=== PATIENT | female | born 1950 | race Hispanic/Latino ===

== ENCOUNTER 2024-04-04 09:49 | Emergency (ER) | payer OTHER ==
[~2024-04-04] VITALS: Ht 165.1 cm; Wt 64.0 kg
[2024-04-04] MEDS ORDERED: ondansetron HCL 4 MG/2 ML VIAL IV ONE (10:15)
[2024-04-04] MEDS ORDERED: SODIUM CHLORIDE 0.9% 1,000 ML IV ONE (10:15)
[2024-04-04] MEDS ORDERED: LIDOCAINE & ANTACID 35 ML BTL PO ONE (10:15)
[2024-04-04] MEDS ORDERED: PANTOPRAZOLE SODIUM 40 MG/10 ML VIAL IV ONE (10:15)
[2024-04-04 10:51] LABS: BASOPHILS 0.8 % (0-2); EOSINOPHILS 2.4 % (0-6); HEMATOCRIT 36.3 % (35.0-50.0); HEMOGLOBIN 12.2 g/dL (12.0-18.0); LYMPHOCYTES 47.3 % (24-44); MCH 30.9 (27-36); MCHC 33.7 g/dl (30-36); MCV 91.7 fl (81-99); MONOCYTES 8.8 % (0-12); NEUTROPHILS 40.7 % (39-80); PLATELET COUNT 373 K/uL (140-440); RBC 3.96 M/ul (4.3-5.7); RDW 13.6 (10.5-15.0)
[2024-04-04 10:57] LABS: PARTIAL THROMBOPLASTIN TIME 26.9 Sec (22.9-41.3)
[2024-04-04 10:58] LABS: INR 1.02 (0.80-1.30); PROTIME 12.7 Sec (11.2-14.2)
[2024-04-04 11:09] LABS: ALBUMIN 3.3 g/dL (3.4-5.0); ALBUMIN/GLOBULIN RATIO 0.73 (1.1-2.4); ANION GAP 10.8 (7-21); BILIRUBIN, TOTAL 0.2 ng/dL (0.2-1.0); BUN/CREATININE RATIO 9.43 (6.0-28.6); CALCIUM 8.9 mg/dL (8.5-10.1); CREATININE, SERUM 1.06 mg/dL (0.55-1.02); POTASSIUM 3.8 mmol/L (3.5-5.1); PROTEIN, TOTAL 7.8 g/dL (6.4-8.2)
--- OUTSIDE RECORDS SUMMARY | 2024-04-04 11:56 | XMS ---
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 [place] has no Care Guidelines for this patient. [place] VISIT COUNT (12 MO.) [address] [facility] TOTAL 2 NOTE: Visits indicate total known visits. ED/C VISIT TRACKING (12 MO.) 04/04/2024 09:50 [facility] [place] TYPE: Emergency COMPLAINT: - NAUSEA 03/30/2024 14:14 [facility] [place] TYPE: Emergency DIAGNOSES: - Other viral infections of unspecified site - Pneumonia, unspecified organism - [place]USEA [place] INPATIENT VISIT TRACKING (12 MO.) No inpatient visits to display in this time frame [email or web address]
[2024-04-04 12:19] LABS: BILIRUBIN, URINE NEGATIVE (negative); BLOOD/HGB, URINE NEGATIVE (Negative); KETONE, URINE NEGATIVE (Negative); LEUK ESTERASE, URINE NEGATIVE (negative); NITRITE, URINE NEGATIVE (negative); PH, URINE 5.5 (5-7)
[2024-04-04] MEDS ORDERED: ONDANSETRON ODT4 MG SL (13:19)
[2024-04-04] MEDS ORDERED: PROTONIX40 MG PO (13:19)
[2024-04-04 13:24] VITALS: BP 141/75
--- NOTE | 2024-04-05 21:51 | EKG ---
[facility] [address] [place] [address] Signed Normal sinus rhythm Low voltage QRS Borderline ECG No previous ECGs available Confirmed by Nguyễn Lloyd MD () on 04/05/2024 9:51:13 PM Electronically Signed By: NGUYỄN LLOYD MD 04/05/242150 PATIENT NAME: DENIA BIRDAGUSTIN Electrocardiogram DATE OF : 54 PHYSICIAN: NGUYỄN LLOYD MD REPORT #: [id number] REPORT IS CONFIDENTIAL AND NOT TO BE RELEASED WITHOUT AUTHORIZATION
== END 2024-04-04 13:35 | disposition home or self-care (01) ==
LOC: ED 09:49
PROVIDERS: Emergency Medicine
DX: R11.0 Nausea (principal)
CPT/HCPCS: 36415; 74176; 80053; 81003; 83690; 83735; 83880; 84484; 85025; 85610; 85730; 93005; 93010; 96374; 96375; 99284-25; J2405; J2470; J7030